=== PATIENT | male | born 1975 | race African-American/Black ===

== ENCOUNTER 2016-09-14 14:44 | Emergency (ER) | payer SELFPAY | END 2016-09-14 15:16 | disposition home or self-care (01) | LOC: ER 14:44 | DX: K02.9 Dental caries, unspecified (principal); R59.0 Localized enlarged lymph nodes; L98.9 Disorder of the skin and subcutaneous tissue, unspecified | CPT/HCPCS: 99283 ==

== ENCOUNTER 2016-10-13 18:10 | Emergency (ER) | payer SELFPAY | END 2016-10-13 18:36 | disposition home or self-care (01) | LOC: ER 18:10 | DX: K08.89 Other specified disorders of teeth and supporting structures (principal) | CPT/HCPCS: 99282 ==

== ENCOUNTER 2016-10-21 16:15 | Emergency (ER) | payer SELFPAY ==
[2016-10-21 16:49] LABS: BASOPHILS 0 %; EOSINOPHILS 0.1 %; EOSINOPHILS ABSOLUTE 0.01 10/3/uL (0.0-0.53); HEMATOCRIT 39.9 % (40.0-51.0); HEMOGLOBIN 14.1 g/dL (13.6-17.8); IMMATURE GRANULOCYTES 0.1 %; IMMATURE GRANULOCYTES ABSOLUTE 0.01 10/3/uL (0.0-0.11); LYMPHOCYTES 8.8 %; LYMPHOCYTES ABSOLUTE 0.61 10/3/uL (0.67-4.30); MEAN CORPUS HGB CONC 35.3 g/dL (32.0-36.0); MEAN CORPUSCULAR HEMOGLOB 31.8 pg (26.0-34.0); MEAN CORPUSCULAR VOLUME 89.9 fL (80-100); MEAN PLATELET VOLUME 9.7 fL (9.2-13.0); MONOCYTES 5.2 %; MONOCYTES ABSOLUTE 0.36 10/3/uL (0.21-1.20); NEUTROPHILS 85.8 %; NEUTROPHILS ABSOLUTE 5.98 10/3/uL (2.02-8.40); PLATELET COUNT 263 10/3/uL (150-400); RBC DISTRIBUTION WIDTH 14.3 % (12.0-16.0); RED CELL COUNT 4.44 10/6/uL (4.7-6.1)
[2016-10-21 16:50] LABS: ER CBC TAT 0 Hrs 05 Mins; MANUAL DIFF NO %
[2016-10-21 16:57] LABS: PARTIAL THROMBO TIME 24.1 SEC (22.5-37.2); PROTIME (NOT ORD) 13.4 SEC (12.0-14.5)
[2016-10-21 17:10] LABS: BUN (BLOOD UREA NITROGEN) 14 MG/DL (6-23); CALCIUM, SERUM 9.4 MG/DL (8.5-10.4); CHEST PAIN PROFILE TAT 0 Hrs 25 Mins; CHLORIDE, SERUM 102 MMOL/L (96-112); CO2 (CARBON DIOXIDE) 30 MMOL/L (24-34); CREATININE 1.68 MG/DL (0.70-1.30); GFR AFRICAN AMERICAN 57 ML/MIN (>=60); GFR NON AFRICAN AMERICAN 49 ML/MIN (>=60); GLUCOSE, SERUM 96 MG/DL (60-99); SODIUM, SERUM 137 MMOL/L (135-148); TROPONIN I 0.02 NG/ML (<0.05)
== END 2016-10-21 21:43 | disposition home or self-care (01) ==
LOC: ER 16:15
PROVIDERS: Emergency Medicine
DX: Z00.00 Encounter for general adult medical examination without abnormal findings (principal); H61.23 Impacted cerumen, bilateral
CPT/HCPCS: 71020; 80048; 83735; 84484; 85025; 85610; 85730; 93005; 99284